=== PATIENT | female | born 1940 | race Caucasian/White ===

== ENCOUNTER 2017-11-02 11:30 | Day surgery (SDC) | payer MEDICARE, BC ==
--- NOTE | 2017-11-02 07:45 | History and Physical - [place] ---
CHIEF COMPLAINT/HISTORY OF CHIEF COMPLAINT: This patient presents with a history of an intractable lumbar radiculopathy. Due to the failure of all therapy, a spinal cord stimulator trial is conducted with 75+% pain control. due to the failure of all therapy and the success of the trial she presents today for implantation of a permanent system. PAST MEDICAL HISTORY: Hypothyroidism. PAST SURGICAL HISTORY: Hip surgery and knee surgery. MEDICATIONS ON ADMISSION: List to be provided. No blood thinners. ALLERGIES: None. FAMILY/PSYCHOSOCIAL HISTORY: Social history - Noncontributory. Family history - Thyroid disease. SYSTEMS REVIEW: The patient is appropriate in no acute distress. The remainder of the systems review is positive for peripheral edema. PHYSICAL EXAMINATION: Height is 5', weight is 170. No vital signs. HEENT: Within normal limits. LUNGS: Clear. HEART: Regular rate and rhythm. ABDOMEN: Nontender. MUSCULOSKELETAL: Examination of the musculoskeletal system shows diffuse tenderness lumbar spine. Range of motion does produce pain into both legs. Sensory johnson in the lower extremities are intact although there are mild sensory deficits along an L4-L5 pattern. There is some motor weakness to both legs equally. No assistive device utilized. NEUROLOGIC: Cranial nerves are intact. IMPRESSION: LUMBAR RADICULOPATHY, ICD-10 CODE M54.16 AND M54.17. PLAN: The patient is here for implantation of a permanent spinal cord stimulator based upon a successful trial and the failure of all therapies. The risks, side effects and complications have been carefully reviewed and discussed. We will consider an overnight stay after the procedure. JOB NUMBER: [id number] [facility]
[~2017-11-02 11:30] MED LIST: ACETAMINOPHEN 1,000 MG/100 ML BTL IV ONE; CEFAZOLIN 2 Gram 2 GM/50 ML BAG IVPB ONE; FAMOTIDINE 20MG TABLET PO ONE; MECLIZINE 25 MG TABLET PO ONE; METOCLOPRAMIDE 10 MG TABLET PO ONE
[2017-11-02] MEDS ORDERED: CEFAZOLIN 1G VIAL IM ONE (11:31)
[2017-11-02] MEDS ORDERED: PROPOFOL 10 MG/ML VIAL IV ONE (11:31)
[2017-11-02] MEDS ORDERED: LIDOCAINE 1% W/EPI 1:200,000 MPF 30ML SQ ONE (11:31)
[2017-11-02] MEDS ORDERED: FENTANYL PF 100MCG/2ML VIAL IV ONE (11:31)
[2017-11-02] MEDS ORDERED: MORPHINE SULFATE 5 MG/ML PFS IVP ONE (11:31)
[2017-11-02] MEDS ORDERED: MIDAZOLAM HCL 2MG/2ML VIAL IV ONE (11:31)
[2017-11-02] MEDS ORDERED: 0.9 % SODIUM CHLORIDE 10 ML VIAL IVP ONE (11:31)
[2017-11-02] MEDS ORDERED: FLUMAZENIL 1MG/10ML VIAL IV ONE (11:31)
[2017-11-02] MEDS ORDERED: LIDOCAINE 2% MDV (20MG/ML) 20ML VIAL IV ONE (11:31)
[2017-11-02] MEDS ORDERED: ONDANSETRON HCL IV 4 MG/2 ML VIAL IVP ONE (11:31)
[2017-11-02] MEDS ORDERED: BUPIVACAINE 0.5% W/EPI MPF 30 ML VIAL IVP ONE (11:31)
--- NOTE | 2017-11-05 13:41 | RADIOLOGY REPORT ---
EXAM: SPINE, 1 VIEW HISTORY: STIMULATOR PLACEMENT. TECHNIQUE: A single AP view of the spine was performed. FINDINGS: Stimulator pack projects over the left lower quadrant. The lead tips appear to be at the T6-7 level. IMPRESSION: LEAD STIMULATOR TIPS APPEAR TO BE AT THE T6-7 LEVEL. POWER PACK PROJECTS OVER THE LEFT LOWER QUADRANT. JOB NUMBER: [id number] MTDD
--- NOTE | 2017-11-07 19:27 | Operative Note ---
DATE OF SURGERY: 11/02/17 PREOPERATIVE DIAGNOSES: 1. INTRACTABLE LUMBAR RADICULOPATHY, ICD-10 CODE = M54.16 AND M54.17. 2. THORACOLUMBAR ROTOSCOLIOSIS, ICD-10 CODE= M41.25. OPERATION: 1. FLUOROSCOPICALLY-GUIDED EPIDURAL ACCESS LEFT T12-L1, PLACEMENT OF SPINAL CORD STIMULATOR LEAD 1, A [employer] INFINION 16 WITH 6 ELECTRODES POSITIONED LEFT T7. 2. FLUOROSCOPICALLY-GUIDED EPIDURAL ACCESS LEFT T11-12, PLACEMENT OF SPINAL CORD STIMULATOR LEAD 2, A [employer] INFINION 16 WITH 6 ELECTRODES POSITIONED RIGHT T7. 3. COMPLEX PROGRAMMING OF LEAD 1 OVER 20 MINUTES FOLLOWED BY COMPLEX PROGRAMMING OF LEAD 2 OVER 20 MINUTES. 4. INCISION, SUBCUTANEOUS DISSECTION, AND ANCHORING OF LEAD 1 AND LEAD 2 TO SUPRASPINOUS FASCIA USING A [employer] LOCKING ANCHOR. 5. INCISION, SUBCUTANEOUS DISSECTION, AND CREATION OF SUBCUTANEOUS POUCH AT LEFT POSTERIOR GLUTEAL MARGIN FOR PLACEMENT OF GENERATOR IDENTIFIED A grabHalo WAVEWRITER PROGRAMMABLE RECHARGEABLE. 6. TUNNELING BETWEEN POUCHES. PLACEMENT OF EXTERNAL PORTION OF LEAD 1 AND LEAD 2 INTO GENERATOR POUCH, EACH LEAD INTERFACED TO GENERATOR. 7. CLOSURE OF INCISIONS STRATAFIX SUTURE, 2-0 FASCIA, 3-0 SKIN. DERMABOND CLOSURE. 8. COMPLEX RECOVERY ROOM PROGRAMMING INTERNAL GENERATOR, HOME USE, TWO STIMULATORS, 20 MINUTES. SURGEON: JACKIE PASTRANA D.O. ANESTHESIA: LOCAL SEDATION. ANESTHESIA PROVIDER: KISHOR WILLAMS CRNA. INDICATION: This patient with a history of intractable lumbar radiculopathy. Due to the failure of all therapy, a spinal cord stimulator trial was then conducted with 75 to 80% pain control. Due to the failure of all therapy and the success of the trial, patient presents today for implantation of a permanent system. PROCEDURE: Intravenous line, vital sign monitoring, IV sedation, prepped and draped sterile technique. Under imaging, the epidural interspace left of the midline at T12-1 and 11-12 were marked and infiltrated. Two separate curved axis Epimed needles with [id number]. At 12-1, spinal cord stimulator lead 1, a [employer] Infinion 16 with 6 electrodes positioned left at T7. With the epidural access left of midline at 11-12, spinal cord stimulator lead 2, a [employer] Infinion 16 with 6 electrodes, positioned right at T7. Complex programming of lead 1 over 20 minute followed by complex programming of lead 2 over 20 minutes resulting in complete patterns of stimulation across the back and into the legs; patient indicating we were in all of the areas of the pain. She was given the option to implant, continue to program, or remove; she opted to implant. Questions were repeated with the same response. The skin above and below both needles were infiltrated, incision made , and subcutaneous dissection was conducted to the supraspinous fascia. The needle was removed and the leads were anchored to the supraspinous fascia with a [employer] [place] and nonabsorbable suture. At the left posterior gluteal margin; a site picked by the patient for the generator, a [employer]chargeable WaveWriter, skin infiltrated, incision made, and subcutaneous dissection was conducted to form a pouch of suitable size and depth for the generator. A tunneling tool was used to carry the leads into the generator pouch and then each lead was interfaced to the generator. Antibiotic irrigation. Bovie for hemostasis. The leads were placed in the pouch, the generator was placed in the pouch and secured to the posterior fascia with nonabsorbable suture and then incisions were closed with STRATAFIX suture, 2-0 fascia, 3-0 skin. Dermabond closure. She was transported to the Recovery Room stable. No side-effects from the procedure or the sedation. When fully awake and alert, complex programming of the internal generator Recovery Room 20 minutes performed re-establishing stimulation and pain control to all of the appropriate areas. The patient then was instructed on the use of the system. She will be kept overnight for observation and discharged in the morning. DISCHARGE INSTRUCTIONS: 1. Sites remain clean and dry. No showering or bathing in any way that would disrupt dressings. If it happens, contact the clinic. 2. Standard medications resumed including Levaquin, the antibiotic, 500 mg once a day for 14 days. 3. The office will contact the patient in 12-24 hours to set up a time in 7-10 days to evaluate sites. Until then, activities should stay low. All other instructions provided. The antibiotic has been called, Levaquin 500 mg once a day for 14 days. All other instructions provided, numbers to contact with problems given, she will be evaluated in the office. cc: Dr. Parish [place] JOB NUMBER: [id number] MTDD
== END 2017-11-02 15:25 | disposition home or self-care (01) ==
LOC: SUR 11:30
PROVIDERS: ATTEND Pain Medicine Interventional Pain Medicine
DX: M54.16 Radiculopathy, lumbar region (principal); M54.17 Radiculopathy, lumbosacral region; M41.25 Other idiopathic scoliosis, thoracolumbar region; D64.9 Anemia, unspecified; I34.1 Nonrheumatic mitral (valve) prolapse
CPT/HCPCS: 72020; 95972; C1820; C1883; J0690; J2405